=== PATIENT | female | born 1945 | race Caucasian/White ===

== ENCOUNTER 2017-01-12 12:01 | Inpatient (IN) | payer OTHER, BC ==
[~2017-01-12] VITALS: Ht 167.6 cm; Wt 76.7 kg
[~2017-01-12 12:01] MED LIST: CLOP75TA2 PO; DILT240C91 PO; GLU500 PO; GLYB5TAB4 PO; GLYB5TAB7 PO; LIP80 PO; METF-305 PO; TRIA1CAP2 PO; TRIA1CAP53 PO; VALS320T10 PO
[2017-01-12 12:05] VITALS: BP 150/71; PULSE 82; RESP 16; TEMP 99.3; O2SAT 94
[2017-01-12] MEDS ORDERED: DEXAMETHASONE SOD PHOSPHATE 10 MG/ML VIAL IVP ONE (12:15)
[2017-01-12] MEDS ORDERED: cefTRIAXone 1 GM IVPB PREMIX 50 ML IV ONE (12:15)
[2017-01-12] MEDS ORDERED: ONDANSETRON HCL 4 MG/2 ML VIAL IVP ONE (12:15)
[2017-01-12] MEDS ORDERED: KETOROLAC TROMETHAMINE 30 MG VIAL IVP ONE (12:30)
[2017-01-12 12:44] LABS: BASOPHILS # (AUTO) 0.1 K/uL (0.0-0.2); BASOPHILS % (AUTO) 1.5 % (0.0-2.0); HEMATOCRIT 33.8 % (36-48); HEMOGLOBIN 10.8 g/dL (12.0-16.0); LYMPHOCYTES # (AUTO) 0.4 K/uL (1.0-5.5); LYMPHOCYTES % (AUTO) 4.9 % (20.5-51.5); MEAN CORPUSCULAR HEMOGLOBIN 23 pg (27-31); MEAN CORPUSCULAR HGB CONC 32 % (32-36); MEAN CORPUSCULAR VOLUME 72 fL (79.0-98.0); MONOCYTES # (AUTO) 0.7 K/uL (0.0-1.0); MONOCYTES % (AUTO) 7.9 % (1.7-9.3); NEUTROPHILS # (AUTO) 7.6 K/uL (1.8-7.7); NEUTROPHILS % (AUTO) 85.7 % (40.0-70.0); PLATELET COUNT (AUTO) 226 K/uL (130-430); RED BLOOD CELL COUNT(AUTO) 4.72 MIL/uL (4.2-6.2); RED CELL DISTRIBUTION WIDTH 17.4 % (9.0-15.0); WHITE BLOOD COUNT (AUTO) 8.8 K/uL (4.8-10.8)
[2017-01-12 12:46] LABS: CALCIUM 9.2 mg/dL (8.4-11.0); CREATININE 1.34 mg/dL (0.55-1.30); POTASSIUM 3.8 mmol/L (3.5-5.1)
[2017-01-12 12:49] LABS: INR 1.1 (0.8-1.2); PROTHROMBIN TIME 11.6 SECS (9.5-12.5)
[2017-01-12 12:51] LABS: ALBUMIN 3.3 g/dL (3.4-4.8); TOTAL BILIRUBIN 0.4 mg/dL (0.0-1.0); TOTAL PROTEIN, SERUM 7.8 g/dL (6.4-8.3)
[2017-01-12] MEDS: NACL 0.9% 1,000 ML IV SCH ×3 (12:59→16:00)
[2017-01-12] MEDS ORDERED: ASPIRIN 325 MG TABLET PO ONE (13:15)
[2017-01-12] MEDS ORDERED: LIP80 PO (13:33)
[2017-01-12] MEDS ORDERED: VALS320T10 PO (13:33)
[2017-01-12] MEDS ORDERED: GLYB5TAB7 PO (13:33)
[2017-01-12] MEDS ORDERED: DILT240C91 PO (13:33)
[2017-01-12] MEDS ORDERED: TRIA1CAP53 PO (13:33)
[2017-01-12] MEDS ORDERED: METF1000 PO (13:33)
[2017-01-12] MEDS ORDERED: OSELTAMIVIR PHOSPHATE 75 MG CAPSULE PO ONE (14:00)
[2017-01-12 15:00] LABS: BILIRUBIN,URINE NEGATIVE (NEGATIVE); BLOOD, URINE NEGATIVE (NEGATIVE); COLOR,URINE YELLOW (YELLOW); GLUCOSE,URINE NEGATIVE (NEGATIVE); KETONES,URINE NEGATIVE (NEGATIVE); LEUKOCYTE ESTERASE ,URINE NEGATIVE (NEGATIVE); NITRITE, URINE NEGATIVE (NEGATIVE); PH,URINE 7.5 (5.0-8.0); PROTEIN URINE NEGATIVE (NEGATIVE); UROBILINOGEN,URINE 0.2 (0.2-1.0)
[2017-01-12] MEDS ORDERED: DEXTROSE 50% JECT 50 ML DISP.SYRIN IVP PRN (15:15)
[2017-01-12] MEDS ORDERED: MORPHINE 2 MG/ML INJ. SYRINGE IVP PRN (15:15)
[2017-01-12] MEDS ORDERED: ACETAMINOPHEN 325 MG TABLET PO PRN (15:15)
[2017-01-12] MEDS ORDERED: LORazepam 2 MG/ML VIAL IVP PRN (15:15)
[2017-01-12] MEDS ORDERED: POTASSIUM CHLORIDE 10 MEQ TAB.PRT.SR PO PRN (15:15)
[2017-01-12] MEDS ORDERED: ONDANSETRON HCL 4 MG/2 ML VIAL IVP PRN (15:15)
[2017-01-12] MEDS ORDERED: DOCUSATE SODIUM 100 MG CAPSULE PO PRN (15:15)
[2017-01-12] MEDS ORDERED: MAGNESIUM SULFATE 50 ML IV PRN (15:15)
[2017-01-12] MEDS ORDERED: ZOLPIDEM TARTRATE 5 MG TABLET PO PRN (15:15)
[2017-01-12 15:18] LABS: CLARITY/URINE HAZY (CLEAR)
[2017-01-12 15:21] LABS: BACTERIA,URINE FEW /HPF (None Seen); MUCUS,URINE None Seen /LPF (None Seen); RBC,URINE 0-3 /HPF (0-3); URINE AMORPHOUS PHOSPHATES 1+ /HPF (None Seen); WBC,URINE 0-3 /HPF (0-3)
[2017-01-12 15:45] VITALS: BP 137/59; PULSE 74; RESP 18; TEMP 96.6; O2SAT 94
[2017-01-12] MEDS: INSULIN ASPART 100 UNITS/ML, 10 ML VIAL (NovoLOG) SUBCUT PRN ×2 (17:03→21:07)
[2017-01-12 20:00] VITALS: BP 124/59; PULSE 66; RESP 16; TEMP 97.2; O2SAT 94
[2017-01-12] MEDS: ATORVASTATIN 20 MG TABLET PO SCH (20:58)
[2017-01-12] MEDS: OSELTAMIVIR PHOSPHATE 75 MG CAPSULE PO SCH (20:58)
[2017-01-13 00:34] VITALS: BP 126/84; PULSE 78; RESP 17; TEMP 97.8; O2SAT 97
[2017-01-13] MEDS: NACL 0.9% 1,000 ML IV SCH ×2 (01:51→14:00)
[2017-01-13 04:45] VITALS: BP 132/82; PULSE 82; RESP 18; TEMP 98; O2SAT 98
[2017-01-13] MEDS: INSULIN ASPART 100 UNITS/ML, 10 ML VIAL (NovoLOG) SUBCUT PRN ×4 (06:00→21:50)
[2017-01-13 06:52] LABS: BASOPHILS % (AUTO) 0.1 % (0.0-2.0); HEMATOCRIT 31.9 % (36-48); HEMOGLOBIN 10.1 g/dL (12.0-16.0); LYMPHOCYTES # (AUTO) 0.6 K/uL (1.0-5.5); MEAN CORPUSCULAR HEMOGLOBIN 23 pg (27-31); MEAN CORPUSCULAR HGB CONC 32 % (32-36); MEAN CORPUSCULAR VOLUME 73 fL (79.0-98.0); MONOCYTES # (AUTO) 0.5 K/uL (0.0-1.0); MONOCYTES % (AUTO) 8.1 % (1.7-9.3); NEUTROPHILS # (AUTO) 4.6 K/uL (1.8-7.7); NEUTROPHILS % (AUTO) 81.8 % (40.0-70.0); PLATELET COUNT (AUTO) 197 K/uL (130-430); RED BLOOD CELL COUNT(AUTO) 4.37 MIL/uL (4.2-6.2); RED CELL DISTRIBUTION WIDTH 17.6 % (9.0-15.0); WHITE BLOOD COUNT (AUTO) 5.7 K/uL (4.8-10.8)
[2017-01-13 07:51] LABS: CALCIUM 8.2 mg/dL (8.4-11.0); CREATININE 0.99 mg/dL (0.55-1.30)
[2017-01-13 08:00] VITALS: BP 130/53; PULSE 62; RESP 16; TEMP 97; O2SAT 96
[2017-01-13] MEDS ORDERED: TRIAMTERENE/HYDROCHLOROTHIAZID 1 CAP CAPSULE (DYAZIDE37.5/25) PO SCH (09:00)
[2017-01-13] MEDS: ENOXAPARIN SODIUM 30 MG/0.3 ML SYRINGE SUBCUT SCH (09:19)
[2017-01-13] MEDS: DILTIAZEM HCL 240 MG CAP.SR.24H PO SCH (09:20)
[2017-01-13] MEDS: OSELTAMIVIR PHOSPHATE 75 MG CAPSULE PO SCH ×2 (09:20→21:40)
[2017-01-13] MEDS: VALSARTAN 160 MG TABLET (DIOVAN) PO SCH (09:21)
[2017-01-13 12:19] VITALS: BP 130/54; PULSE 63; RESP 19; TEMP 96.5; O2SAT 94
[2017-01-13 15:07] VITALS: Ht 167.6 cm; Wt 76.7 kg
[2017-01-13 16:31] VITALS: BP 118/52; PULSE 55; RESP 17; TEMP 98.3; O2SAT 98
[2017-01-13 20:00] VITALS: BP 127/50; PULSE 56; RESP 18; TEMP 97.9; O2SAT 96
[2017-01-13] MEDS: ATORVASTATIN 20 MG TABLET PO SCH (21:40)
[2017-01-14] VITALS: BP 128/57; PULSE 55; RESP 18; TEMP 97.9; O2SAT 95
[2017-01-14] MEDS: NACL 0.9% 1,000 ML IV SCH ×3 (00:47→11:58)
[2017-01-14 04:24] VITALS: BP 128/49; PULSE 52; RESP 18; TEMP 98.6; O2SAT 95
[2017-01-14 07:00] LABS: BASOPHILS % (AUTO) 0.2 % (0.0-2.0); HEMATOCRIT 32.5 % (36-48); HEMOGLOBIN 10.3 g/dL (12.0-16.0); LYMPHOCYTES # (AUTO) 1.2 K/uL (1.0-5.5); LYMPHOCYTES % (AUTO) 16.7 % (20.5-51.5); MEAN CORPUSCULAR HEMOGLOBIN 23 pg (27-31); MEAN CORPUSCULAR HGB CONC 32 % (32-36); MEAN CORPUSCULAR VOLUME 72 fL (79.0-98.0); MONOCYTES # (AUTO) 0.8 K/uL (0.0-1.0); MONOCYTES % (AUTO) 11.5 % (1.7-9.3); NEUTROPHILS # (AUTO) 4.9 K/uL (1.8-7.7); NEUTROPHILS % (AUTO) 71.6 % (40.0-70.0); PLATELET COUNT (AUTO) 203 K/uL (130-430); RED BLOOD CELL COUNT(AUTO) 4.52 MIL/uL (4.2-6.2); WHITE BLOOD COUNT (AUTO) 6.9 K/uL (4.8-10.8)
[2017-01-14 07:28] LABS: CALCIUM 8.1 mg/dL (8.4-11.0); POTASSIUM 3.7 mmol/L (3.5-5.1)
[2017-01-14 07:39] LABS: RED CELL DISTRIBUTION WIDTH 17.5 % (9.0-15.0)
[2017-01-14 07:55] LABS: THYROID STIMULATING HORMONE 1.85 uIu/mL (0.36-3.74)
[2017-01-14] MEDS: DILTIAZEM HCL 240 MG CAP.SR.24H PO SCH (09:00)
[2017-01-14] MEDS: VALSARTAN 160 MG TABLET (DIOVAN) PO SCH (09:08)
[2017-01-14] MEDS: OSELTAMIVIR PHOSPHATE 75 MG CAPSULE PO SCH ×2 (09:08→20:56)
[2017-01-14] MEDS: ENOXAPARIN SODIUM 30 MG/0.3 ML SYRINGE SUBCUT SCH (09:08)
[2017-01-14 11:33] VITALS: BP 131/53; PULSE 60; RESP 19; TEMP 97.1; O2SAT 96
[2017-01-14 15:34] VITALS: BP 134/48; PULSE 57; RESP 19; TEMP 97; O2SAT 93
[2017-01-14 20:00] VITALS: BP 150/64; PULSE 73; RESP 18; TEMP 97.6; TEMP 97.8; O2SAT 94
[2017-01-14] MEDS: ATORVASTATIN 20 MG TABLET PO SCH (20:56)
[2017-01-14] MEDS: INSULIN ASPART 100 UNITS/ML, 10 ML VIAL (NovoLOG) SUBCUT PRN (21:08)
[2017-01-15] VITALS: BP 149/68; PULSE 75; RESP 22; TEMP 99.2; O2SAT 94
[2017-01-15 04:00] VITALS: BP 132/61; PULSE 77; RESP 18; TEMP 99; O2SAT 96
[2017-01-15 07:00] VITALS: BP 158/65; PULSE 62; RESP 18; TEMP 97.6; O2SAT 96
[2017-01-15 07:42] LABS: CALCIUM 8.1 mg/dL (8.4-11.0); CREATININE 0.86 mg/dL (0.55-1.30); POTASSIUM 3.5 mmol/L (3.5-5.1)
[2017-01-15 07:47] LABS: BASOPHILS % (AUTO) 0.2 % (0.0-2.0); HEMATOCRIT 33.3 % (36-48); HEMOGLOBIN 10.8 g/dL (12.0-16.0); LYMPHOCYTES # (AUTO) 0.8 K/uL (1.0-5.5); LYMPHOCYTES % (AUTO) 13.3 % (20.5-51.5); MEAN CORPUSCULAR HEMOGLOBIN 23 pg (27-31); MEAN CORPUSCULAR HGB CONC 32 % (32-36); MEAN CORPUSCULAR VOLUME 72 fL (79.0-98.0); MONOCYTES % (AUTO) 15.2 % (1.7-9.3); NEUTROPHILS # (AUTO) 4.6 K/uL (1.8-7.7); NEUTROPHILS % (AUTO) 71.3 % (40.0-70.0); PLATELET COUNT (AUTO) 196 K/uL (130-430); RED BLOOD CELL COUNT(AUTO) 4.63 MIL/uL (4.2-6.2); RED CELL DISTRIBUTION WIDTH 17.5 % (9.0-15.0); WHITE BLOOD COUNT (AUTO) 6.4 K/uL (4.8-10.8)
[2017-01-15 08:00] VITALS: BP 135/66; PULSE 75; RESP 18; TEMP 98.8; O2SAT 95
[2017-01-15] MEDS: OSELTAMIVIR PHOSPHATE 75 MG CAPSULE PO SCH (09:54)
[2017-01-15] MEDS: ENOXAPARIN SODIUM 30 MG/0.3 ML SYRINGE SUBCUT SCH (09:55)
[2017-01-15] MEDS: DILTIAZEM HCL 240 MG CAP.SR.24H PO SCH (09:55)
[2017-01-15] MEDS: VALSARTAN 160 MG TABLET (DIOVAN) PO SCH (09:57)
[2017-01-15] MEDS ORDERED: OSEL75CA PO (10:06)
[2017-01-15] MEDS ORDERED: BISACODYL 5 MG TABLET.DR (DULCOLAX) PO ONE (11:00)
[2017-01-15 12:00] VITALS: BP 158/65; PULSE 62; RESP 18; TEMP 97.5; O2SAT 96
[2017-01-15 13:05] VITALS: BP 130/76; PULSE 78; RESP 18; TEMP 98.5; O2SAT 97
== END 2017-01-15 14:30 | disposition home health service (06) | DRG 872 ==
LOC: SED 12:01 → STU 14:44 → SMU 17:50 → STU 22:13
PROVIDERS: ADMIT General Practice; ATTEND General Practice
DX: A41.9 Sepsis, unspecified organism (principal); I10 Essential (primary) hypertension; E78.5 Hyperlipidemia, unspecified; E11.65 Type 2 diabetes mellitus with hyperglycemia; I25.10 Atherosclerotic heart disease of native coronary artery without angina pectoris; I48.91 Unspecified atrial fibrillation; D89.9 Disorder involving the immune mechanism, unspecified; J10.1 Influenza due to other identified influenza virus with other respiratory manifestations; F17.200 Nicotine dependence, unspecified, uncomplicated; M13.0 Polyarthritis, unspecified; R26.81 Unsteadiness on feet; W18.39XA Other fall on same level, initial encounter; Z90.49 Acquired absence of other specified parts of digestive tract; I25.2 Old myocardial infarction; Z95.5 Presence of coronary angioplasty implant and graft; Y93.89 Activity, other specified; Y92.89 Other specified places as the place of occurrence of the external cause; Y99.8 Other external cause status; Z88.5 Allergy status to narcotic agent; Z88.0 Allergy status to penicillin; Z79.899 Other long term (current) drug therapy
CPT/HCPCS: 36415; 71010; 80048; 80053; 80061; 81000-TC; 82550-TC; 82962; 83036; 83605; 83690-TC; 83735-TC; 83880; 84443-TC; 84484; 85025; 85610-TC; 85730-TC; 86710; 87040-TC; 93005; 93306; 96374; 96375; 97530-GP; 99291; G9035; J0696; J1100; J1650; J1815; J1885; J2405; J3475; J7030